=== PATIENT | male | born 1965 | race Two or more races ===

== ENCOUNTER 2018-01-13 00:37 | Inpatient (IN) | payer OTHER ==
[~2018-01-13] VITALS: Ht 177.8 cm; Wt 90.9 kg
[2018-01-13] VITALS (47 sets, daily range): BP systolic 74–103; BP diastolic 56–70
[2018-01-13] MEDS ORDERED: MIDAZOLAM DRIP 50 mg/50mL 50 ML IV ONE (00:57)
[2018-01-13] MEDS: MIDAZOLAM DRIP 50 mg/50mL 50 ML IV SCH ×3 (01:00→17:23)
[2018-01-13 01:03] LABS: Basophils # (auto) 0 uL; Basophils % (auto) 0.3 % (0.0-2.0); Eosinophils # (auto) 0 uL; Hemoglobin 17.2 g/dL (13.5-17.5)
[2018-01-13 01:04] LABS: Eosinophils % (auto) 0.3 % (0.0-7.0); Hematocrit 52.9 % (41.0-53.0); Lymphocytes # (auto) 4.2 uL; Lymphocytes % (auto) 32.9 % (10.0-50.0); Mean Corpuscular Hemoglobin 32.5 pg (28.0-32.0); Mean Corpuscular Hgb Conc. 32.5 g/dL (32.0-36.0); Mean Corpuscular Volume 100.2 fL (80.0-100.0); Monocytes # (auto) 1.3 uL; Monocytes % (auto) 10.4 % (0.0-12.0); Neutrophils # (auto) 7.1 uL; Neutrophils % (auto) 56.1 % (37.0-80.0); Nucleated Red Blood Cells % 0.2 %; Platelet Count (auto) 144 10^3/uL (140-450); Red Blood Cells 5.28 10^6/uL (4.5-5.90); Red Cell Distribution Width 15.7 % (11.8-14.3); White Blood Cell 12.7 10^3/uL (4.4-10.8)
[2018-01-13 01:21] LABS: Albumin 3.9 g/dL (3.4-5.0); BUN/Creatinine Ratio 13.2; Calcium 8.7 mg/dL (8.5-10.1); INR 1.92 (0.9-1.15); Partial Thromboplastin Time 29.4 sec (22.64-33.71); Potassium 3.8 mmol/L (3.5-5.1); Prothrombin Time 21.1 sec (9.37-12.3)
[2018-01-13 01:27] LABS: Bilirubin, Total 0.7 mg/dL (0.2-1.0); Total Protein 7.9 g/dL (6.4-8.2)
[2018-01-13] MEDS ORDERED: NOREPINEPHRINE 8 MG/250ML KIT 250 ML IV ONE (01:42)
[2018-01-13] MEDS: NOREPINEPHRINE 8 MG/250ML KIT 250 ML IV SCH (01:50)
[2018-01-13] MEDS ORDERED: SUCCINYLCHOLINE CHLORIDE 20 MG/ML 10ML VIAL IV ONE (03:00)
[2018-01-13] MEDS ORDERED: ETOMIDATE (2MG/ML) 20ML VIAL IV ONE (03:00)
[2018-01-13] MEDS ORDERED: IOHEXOL 350 MG/ML 100ML IJ ONE ×2 (03:24→21:44)
[2018-01-13 03:50] LABS: Urine Bacteria NONE SEEN /hpf (None Seen); Urine Blood 2+ /uL (Negative); Urine Hyaline Cast FEW /lpf (0 - 2); Urine Mucus FEW (None Seen); Urine Specific Gravity 1.022 (1.001-1.035); Urine Sperm PRESENT /hpf (None Seen); Urine WBC 2 /hpf (0 - 3)
[2018-01-13] MEDS ORDERED: LISI-275 PO (04:18)
[2018-01-13] MEDS ORDERED: CARV6.2551 PO (04:18)
[2018-01-13] MEDS ORDERED: FURO20TA3 PO (04:18)
[2018-01-13] MEDS ORDERED: WARF5TAB71 PO (04:18)
[2018-01-13] MEDS ORDERED: ASPI81TA27 PO (04:18)
[2018-01-13 07:14] LABS: Acetaminophen < 2.0 ug/mL (10-30); Salicylate < 1.7 mg/dL (2.8-20.0)
[2018-01-13] MEDS ORDERED: TRAZ50TA2 PO (09:39)
[2018-01-13] MEDS: PANTOPRAZOLE 40 MG/10 ML VIAL IV SCH (10:00)
[2018-01-13] MEDS ORDERED: ENOXAPARIN SOD 40 MG/0.4 ML SYRINGE SC SCH (10:00)
[2018-01-13] MEDS: SODIUM CHLORIDE 0.9% 1,000 ML IV SCH ×2 (13:30→17:23)
[2018-01-13] MEDS ORDERED: ENOXAPARIN SOD 100 MG/1 ML SYRINGE SC ONE (13:45)
[2018-01-13] MEDS ORDERED: PANTOPRAZOLE 40 MG/10 ML VIAL IV ONE (13:45)
[2018-01-13] MEDS: PIPERACILLIN-TAZO 4.5GM 50 ML IV SCH ×2 (14:19→22:23)
[2018-01-13 15:01] LABS: Alcohol, Urine < 3.0 mg/dL (0-5); Amphetamine Screen, Urine NEGATIVE (NEGATIVE); Barbiturate Scree,Urine NEGATIVE (NEGATIVE); Benzodiazephine Screen, Urine POSITIVE (NEGATIVE); Cannabinoid Screen, Urine NEGATIVE (NEGATIVE); Cocaine Screen, Urine NEGATIVE (NEGATIVE); Opiate Scree,Urine NEGATIVE (NEGATIVE); Phencyclidine Screen, Urine NEGATIVE (NEGATIVE)
[2018-01-13] MEDS: PROPOFOL 100 ML IV SCH (19:23)
[2018-01-14] VITALS (80 sets, daily range): BP systolic 84–119; BP diastolic 55–72
[2018-01-14] MEDS: NOREPINEPHRINE 8 MG/250ML KIT 250 ML IV SCH (03:00)
[2018-01-14 06:01] LABS: Basophils # (auto) 0 uL; Basophils % (auto) 0.3 % (0.0-2.0); Eosinophils # (auto) 0 uL; Eosinophils % (auto) 0.4 % (0.0-7.0); Hematocrit 43.8 % (41.0-53.0); Lymphocytes # (auto) 1.1 uL; Lymphocytes % (auto) 16.6 % (10.0-50.0); Mean Corpuscular Hemoglobin 32.7 pg (28.0-32.0); Mean Corpuscular Hgb Conc. 34.3 g/dL (32.0-36.0); Mean Corpuscular Volume 95.5 fL (80.0-100.0); Monocytes # (auto) 0.7 uL; Monocytes % (auto) 9.7 % (0.0-12.0); Platelet Count (auto) 112 10^3/uL (140-450); Red Blood Cells 4.58 10^6/uL (4.5-5.90); Red Cell Distribution Width 15.2 % (11.8-14.3); White Blood Cell 6.8 10^3/uL (4.4-10.8)
[2018-01-14] MEDS: PIPERACILLIN-TAZO 4.5GM 50 ML IV SCH ×3 (06:07→23:42)
[2018-01-14 06:21] LABS: BUN/Creatinine Ratio 17.1; Calcium 7.4 mg/dL (8.5-10.1); Magnesium 2.9 mg/dL (1.6-2.6); Potassium 3.8 mmol/L (3.5-5.1)
[2018-01-14 06:24] LABS: Bilirubin, Total 0.7 mg/dL (0.2-1.0); Total Protein 6.3 g/dL (6.4-8.2)
[2018-01-14] MEDS: PROPOFOL 100 ML IV SCH ×2 (08:36→17:01)
[2018-01-14] MEDS: MIDAZOLAM DRIP 50 mg/50mL 50 ML IV SCH ×2 (08:37→20:40)
[2018-01-14] MEDS: PANTOPRAZOLE 40 MG/10 ML VIAL IV SCH (09:51)
[2018-01-14] MEDS: SODIUM CHLORIDE 0.9% 1,000 ML IV SCH (09:51)
[2018-01-14] MEDS: ENOXAPARIN SOD 100 MG/1 ML SYRINGE SC SCH ×2 (09:51→22:31)
[2018-01-14] MEDS: ALBUTEROL SULF 2.5 MG/0.5ML(0.5%) NEB SOLN NEB SCH ×2 (12:07→18:38)
[2018-01-14] MEDS ORDERED: ASPirin 81 mg TAB PO ONE (17:15)
[2018-01-14] MEDS: ATORVASTATIN 20 MG TAB PO SCH (22:30)
[2018-01-14] MEDS ORDERED: PIPERACILLIN-TAZO 4.5GM 50 ML IV ONE (23:39)
[2018-01-15] VITALS (72 sets, daily range): BP systolic 94–139; BP diastolic 47–86
[2018-01-15] MEDS: ALBUTEROL SULF 2.5 MG/0.5ML(0.5%) NEB SOLN NEB SCH ×6 (00:32→22:22)
[2018-01-15] MEDS: MIDAZOLAM DRIP 50 mg/50mL 50 ML IV SCH ×2 (01:32→05:59)
[2018-01-15] MEDS: NOREPINEPHRINE 8 MG/250ML KIT 250 ML IV SCH (03:00)
[2018-01-15 04:34] LABS: Basophils # (auto) 0 uL; Basophils % (auto) 0.2 % (0.0-2.0); Eosinophils # (auto) 0 uL; Eosinophils % (auto) 0.8 % (0.0-7.0); Hematocrit 41.1 % (41.0-53.0); Hemoglobin 13.9 g/dL (13.5-17.5); Lymphocytes # (auto) 1.4 uL; Lymphocytes % (auto) 22.9 % (10.0-50.0); Mean Corpuscular Hemoglobin 32.5 pg (28.0-32.0); Mean Corpuscular Hgb Conc. 33.9 g/dL (32.0-36.0); Monocytes # (auto) 0.7 uL; Monocytes % (auto) 11.1 % (0.0-12.0); Nucleated Red Blood Cells % 0.1 %; Platelet Count (auto) 101 10^3/uL (140-450); Red Blood Cells 4.28 10^6/uL (4.5-5.90); Red Cell Distribution Width 15.1 % (11.8-14.3); White Blood Cell 6.1 10^3/uL (4.4-10.8)
[2018-01-15 04:54] LABS: BUN/Creatinine Ratio 19.6; Calcium 7.6 mg/dL (8.5-10.1); Potassium 3.7 mmol/L (3.5-5.1)
[2018-01-15] MEDS: SODIUM CHLORIDE 0.9% 1,000 ML IV SCH ×3 (05:30→15:30)
[2018-01-15] MEDS: PIPERACILLIN-TAZO 4.5GM 50 ML IV SCH ×3 (06:50→21:55)
[2018-01-15] MEDS: PANTOPRAZOLE 40 MG/10 ML VIAL IV SCH (09:55)
[2018-01-15] MEDS: ENOXAPARIN SOD 100 MG/1 ML SYRINGE SC SCH ×2 (09:55→21:55)
[2018-01-15] MEDS: ACETYLCYSTEINE 10 %(100MG/ML) SOL 4ML NEB SCH ×4 (11:07→22:21)
[2018-01-15] MEDS: PROPOFOL 100 ML IV SCH (20:00)
[2018-01-15] MEDS: ATORVASTATIN 20 MG TAB PO SCH (21:55)
[2018-01-15] MEDS: ASPirin 81 mg TAB PO SCH (22:14)
[2018-01-16] VITALS (27 sets, daily range): BP systolic 85–134; BP diastolic 51–103
[2018-01-16] MEDS: SODIUM CHLORIDE 0.9% 1,000 ML IV SCH ×2 (01:30→04:44)
[2018-01-16] MEDS: ALBUTEROL SULF 2.5 MG/0.5ML(0.5%) NEB SOLN NEB SCH ×6 (02:33→22:00)
[2018-01-16] MEDS: ACETYLCYSTEINE 10 %(100MG/ML) SOL 4ML NEB SCH ×6 (02:33→22:00)
[2018-01-16] MEDS: NOREPINEPHRINE 8 MG/250ML KIT 250 ML IV SCH (03:00)
[2018-01-16 05:28] LABS: BUN/Creatinine Ratio 15.6; Calcium 7.5 mg/dL (8.5-10.1); Potassium 3.5 mmol/L (3.5-5.1)
[2018-01-16 05:30] LABS: Basophils # (auto) 0 uL; Basophils % (auto) 0.3 % (0.0-2.0); Eosinophils # (auto) 0.1 uL; Eosinophils % (auto) 1.5 % (0.0-7.0); Hemoglobin 13.2 g/dL (13.5-17.5); Lymphocytes % (auto) 20.6 % (10.0-50.0); Mean Corpuscular Hemoglobin 32.3 pg (28.0-32.0); Mean Corpuscular Hgb Conc. 33.8 g/dL (32.0-36.0); Mean Corpuscular Volume 95.7 fL (80.0-100.0); Monocytes # (auto) 0.6 uL; Monocytes % (auto) 11.5 % (0.0-12.0); Neutrophils # (auto) 3.2 uL; Neutrophils % (auto) 66.1 % (37.0-80.0); Nucleated Red Blood Cells % 0.1 %; Platelet Count (auto) 99 10^3/uL (140-450); Red Blood Cells 4.08 10^6/uL (4.5-5.90); White Blood Cell 4.9 10^3/uL (4.4-10.8)
[2018-01-16] MEDS: PIPERACILLIN-TAZO 4.5GM 50 ML IV SCH ×3 (05:52→22:18)
[2018-01-16] MEDS ORDERED: FUROSEMIDE 40 MG/4 ML VIAL IV ONE (09:30)
[2018-01-16] MEDS ORDERED: MORPHINE SULFATE 4 MG/ML SYR/VIAL ONE (09:35)
[2018-01-16] MEDS: MORPHINE SULFATE 4 MG/ML SYR/VIAL IV PRN ×3 (09:40→23:23)
[2018-01-16] MEDS: ENOXAPARIN SOD 100 MG/1 ML SYRINGE SC SCH (10:27)
[2018-01-16] MEDS ORDERED: KETOROLAC TROMETH 30 MG/ML 1ML VIAL IV ONE ×2 (12:30→12:45)
[2018-01-16] MEDS ORDERED: CARVEDILOL 3.125 MG TAB PO ONE (12:45)
[2018-01-16] MEDS ORDERED: LISINOPRIL 5 MG TAB PO ONE (12:45)
[2018-01-16 14:07] LABS: INR 2.73 (0.9-1.15); Partial Thromboplastin Time 29.2 sec (22.64-33.71); Prothrombin Time 30.1 sec (9.37-12.3)
[2018-01-16] MEDS: PANTOPRAZOLE 40 MG TAB PO SCH (14:24)
[2018-01-16] MEDS: ASPirin 81 mg TAB PO SCH (14:25)
[2018-01-16] MEDS: CARVEDILOL 3.125 MG TAB PO SCH (22:00)
[2018-01-16] MEDS: ATORVASTATIN 20 MG TAB PO SCH (22:18)
[2018-01-16] MEDS: NAPROXEN 500 MG TAB PO SCH (22:18)
[2018-01-17] VITALS (32 sets, daily range): BP systolic 88–129; BP diastolic 55–98
[2018-01-17] MEDS: MORPHINE SULFATE 4 MG/ML SYR/VIAL IV PRN ×6 (01:58→21:57)
[2018-01-17] MEDS: ALBUTEROL SULF 2.5 MG/0.5ML(0.5%) NEB SOLN NEB SCH ×6 (02:18→22:51)
[2018-01-17] MEDS: ACETYLCYSTEINE 10 %(100MG/ML) SOL 4ML NEB SCH ×6 (02:18→22:51)
[2018-01-17 05:13] LABS: INR 3.01 (0.9-1.15); Partial Thromboplastin Time 29.4 sec (22.64-33.71); Prothrombin Time 33.2 sec (9.37-12.3)
[2018-01-17] MEDS: PIPERACILLIN-TAZO 4.5GM 50 ML IV SCH ×3 (05:47→22:15)
[2018-01-17 06:16] LABS: Albumin 3.1 g/dL (3.4-5.0); BUN/Creatinine Ratio 15.7; Bilirubin, Total 1.1 mg/dL (0.2-1.0); Calcium 8.9 mg/dL (8.5-10.1); Magnesium 2.7 mg/dL (1.6-2.6); Potassium 4.5 mmol/L (3.5-5.1)
[2018-01-17] MEDS: NAPROXEN 500 MG TAB PO SCH (09:41)
[2018-01-17] MEDS: ASPirin 81 mg TAB PO SCH (09:42)
[2018-01-17] MEDS: CARVEDILOL 3.125 MG TAB PO SCH ×2 (09:42→22:41)
[2018-01-17] MEDS: FUROSEMIDE 20 MG TAB PO SCH (09:42)
[2018-01-17] MEDS: PANTOPRAZOLE 40 MG TAB PO SCH (09:43)
[2018-01-17] MEDS: LISINOPRIL 5 MG TAB PO SCH (09:43)
[2018-01-17] MEDS ORDERED: D5W/SOD CHL 0.45% 1,000 ML IV SCH (16:45)
[2018-01-17] MEDS: KETOROLAC TROMETH 30 MG/ML 1ML VIAL IV PRN (16:53)
[2018-01-17] MEDS: ATORVASTATIN 20 MG TAB PO SCH (22:15)
[2018-01-18] VITALS (70 sets, daily range): BP systolic 84–140; BP diastolic 45–86
[2018-01-18] MEDS: MORPHINE SULFATE 4 MG/ML SYR/VIAL IV PRN ×8 (00:05→22:55)
[2018-01-18] MEDS: KETOROLAC TROMETH 30 MG/ML 1ML VIAL IV PRN (01:05)
[2018-01-18] MEDS: ALBUTEROL SULF 2.5 MG/0.5ML(0.5%) NEB SOLN NEB SCH ×6 (02:55→22:13)
[2018-01-18] MEDS: ACETYLCYSTEINE 10 %(100MG/ML) SOL 4ML NEB SCH ×6 (02:55→22:13)
[2018-01-18 04:03] LABS: Basophils # (auto) 0 uL; Basophils % (auto) 0.2 % (0.0-2.0); Eosinophils # (auto) 0 uL; Hematocrit 43.5 % (41.0-53.0); Hemoglobin 14.6 g/dL (13.5-17.5); Lymphocytes # (auto) 0.7 uL; Mean Corpuscular Hemoglobin 32.1 pg (28.0-32.0); Mean Corpuscular Hgb Conc. 33.6 g/dL (32.0-36.0); Mean Corpuscular Volume 95.7 fL (80.0-100.0); Monocytes # (auto) 0.7 uL; Monocytes % (auto) 6.1 % (0.0-12.0); Neutrophils # (auto) 9.9 uL; Neutrophils % (auto) 87.7 % (37.0-80.0); Nucleated Red Blood Cells % 0.1 %; Platelet Count (auto) 122 10^3/uL (140-450); Red Blood Cells 4.54 10^6/uL (4.5-5.90); Red Cell Distribution Width 15.8 % (11.8-14.3); White Blood Cell 11.2 10^3/uL (4.4-10.8)
[2018-01-18 04:23] LABS: BUN/Creatinine Ratio 20.3; Calcium 8.7 mg/dL (8.5-10.1); Potassium 4.1 mmol/L (3.5-5.1)
[2018-01-18 04:29] LABS: INR 3.99 (0.9-1.15); Prothrombin Time 44.1 sec (9.37-12.3)
[2018-01-18] MEDS: PIPERACILLIN-TAZO 4.5GM 50 ML IV SCH ×3 (06:10→22:00)
[2018-01-18] MEDS: ASPirin 81 mg TAB PO SCH ×2 (09:52→10:00)
[2018-01-18] MEDS: CARVEDILOL 3.125 MG TAB PO SCH ×3 (09:52→22:00)
[2018-01-18] MEDS: FUROSEMIDE 20 MG TAB PO SCH ×2 (09:53→10:00)
[2018-01-18] MEDS: PANTOPRAZOLE 40 MG TAB PO SCH ×2 (09:53→10:00)
[2018-01-18] MEDS: LISINOPRIL 5 MG TAB PO SCH (09:53)
[2018-01-18] MEDS ORDERED: SODIUM CHLORIDE 0.9% 500 ML IV ONE (11:30)
[2018-01-18] MEDS: D5W/SOD CHL 0.45% 1,000 ML IV SCH ×2 (11:30→19:55)
[2018-01-18] MEDS ORDERED: LORazepam 2MG/ML-1ML VIAL ONE (11:36)
[2018-01-18] MEDS ORDERED: LORazepam 2MG/ML-1ML VIAL IM ONE (11:45)
[2018-01-18] MEDS ORDERED: LORazepam 2MG/ML-1ML VIAL IV ONE (11:45)
[2018-01-18] MEDS: DEXAMETHASONE SOD PHOS 4 MG/1ML SDV INJ IV SCH ×2 (12:21→18:00)
[2018-01-18] MEDS: LORazepam 2MG/ML-1ML VIAL IV PRN ×2 (14:32→20:05)
[2018-01-18] MEDS: SERTRALINE HCL 50 MG TAB PO SCH (14:45)
[2018-01-18] MEDS: ATORVASTATIN 20 MG TAB PO SCH (22:00)
[2018-01-19] VITALS (39 sets, daily range): BP systolic 95–130; BP diastolic 55–83
[2018-01-19] MEDS: DEXAMETHASONE SOD PHOS 4 MG/1ML SDV INJ IV SCH ×3 (00:15→12:03)
[2018-01-19] MEDS: ACETYLCYSTEINE 10 %(100MG/ML) SOL 4ML NEB SCH ×5 (00:33→14:08)
[2018-01-19] MEDS: ALBUTEROL SULF 2.5 MG/0.5ML(0.5%) NEB SOLN NEB SCH ×5 (00:33→14:08)
[2018-01-19] MEDS: MORPHINE SULFATE 4 MG/ML SYR/VIAL IV PRN ×4 (03:05→14:46)
[2018-01-19] MEDS: D5W/SOD CHL 0.45% 1,000 ML IV SCH ×2 (03:30→11:30)
[2018-01-19] MEDS: LORazepam 2MG/ML-1ML VIAL IV PRN ×2 (03:35→12:03)
[2018-01-19 03:46] LABS: Basophils # (auto) 0 uL; Basophils % (auto) 0.1 % (0.0-2.0); Eosinophils # (auto) 0 uL; Hematocrit 37.8 % (41.0-53.0); Hemoglobin 13.1 g/dL (13.5-17.5); Lymphocytes # (auto) 0.3 uL; Lymphocytes % (auto) 3.5 % (10.0-50.0); Mean Corpuscular Hemoglobin 32.9 pg (28.0-32.0); Mean Corpuscular Hgb Conc. 34.7 g/dL (32.0-36.0); Mean Corpuscular Volume 94.8 fL (80.0-100.0); Monocytes # (auto) 0.4 uL; Monocytes % (auto) 4.1 % (0.0-12.0); Neutrophils # (auto) 8.7 uL; Neutrophils % (auto) 92.3 % (37.0-80.0); Nucleated Red Blood Cells % 0.1 %; Platelet Count (auto) 108 10^3/uL (140-450); Red Blood Cells 3.99 10^6/uL (4.5-5.90); Red Cell Distribution Width 15.5 % (11.8-14.3); White Blood Cell 9.5 10^3/uL (4.4-10.8)
[2018-01-19 04:05] LABS: Albumin 2.9 g/dL (3.4-5.0); BUN/Creatinine Ratio 31.3; Bilirubin, Total 0.6 mg/dL (0.2-1.0); Potassium 3.4 mmol/L (3.5-5.1); Total Protein 6.4 g/dL (6.4-8.2)
[2018-01-19] MEDS: PIPERACILLIN-TAZO 4.5GM 50 ML IV SCH ×2 (06:18→14:00)
[2018-01-19] MEDS: SERTRALINE HCL 50 MG TAB PO SCH (09:28)
[2018-01-19] MEDS: PANTOPRAZOLE 40 MG TAB PO SCH (09:28)
[2018-01-19] MEDS: CARVEDILOL 3.125 MG TAB PO SCH (10:00)
== END 2018-01-19 15:07 | disposition short-term general hospital (02) | DRG 208 ==
LOC: ER 00:44 → TELE 00:45 → ICU WEST 01-14 12:21
PROVIDERS: ADMIT Nurse Practitioner Family; ATTEND Internal Medicine Geriatric Medicine
PROC: 5A1945Z Respiratory Ventilation, 24-96 Consecutive Hours (ICD-10-PCS; principal; 2018-01-13)
PROC: 0BH17EZ Insertion of Endotracheal Airway into Trachea, Via Natural or Artificial Opening (ICD-10-PCS; 2018-01-13)
PROC: 5A09457 Assistance with Respiratory Ventilation, 24-96 Consecutive Hours, Continuous Positive Airway Pressure (ICD-10-PCS; 2018-01-16)
DX: J96.01 Acute respiratory failure with hypoxia (principal); R56.9 Unspecified convulsions; N17.9 Acute kidney failure, unspecified; I95.9 Hypotension, unspecified; E86.0 Dehydration; E87.2 Acidosis; E86.1 Hypovolemia; N18.3 Chronic kidney disease, stage 3 (moderate); G95.20 Unspecified cord compression; M48.54XA Collapsed vertebra, not elsewhere classified, thoracic region, initial encounter for fracture; M48.56XA Collapsed vertebra, not elsewhere classified, lumbar region, initial encounter for fracture; D72.829 Elevated white blood cell count, unspecified; I08.0 Rheumatic disorders of both mitral and aortic valves; F41.1 Generalized anxiety disorder; M48.061 Spinal stenosis, lumbar region without neurogenic claudication; R73.9 Hyperglycemia, unspecified; I12.9 Hypertensive chronic kidney disease with stage 1 through stage 4 chronic kidney disease, or unspecified chronic kidney disease; M54.5 Low back pain; I25.10 Atherosclerotic heart disease of native coronary artery without angina pectoris; M85.80 Other specified disorders of bone density and structure, unspecified site; I48.91 Unspecified atrial fibrillation; Z79.01 Long term (current) use of anticoagulants; Z79.82 Long term (current) use of aspirin; Z79.899 Other long term (current) drug therapy; Z95.0 Presence of cardiac pacemaker; Z83.3 Family history of diabetes mellitus; Z95.1 Presence of aortocoronary bypass graft
CPT/HCPCS: 31500; 36415; 36600; 51702; 71045; 71275; 72131; 74018; 76775; 80048; 80053; 80307; 80320; 80329; 81001; 82565; 82805; 83036; 83735; 83880; 84484; 84520; 85025; 85379; 85610; 85730; 87040; 87070; 87081; 87086; 87205; 87804; 93005; 93306; 93970; 94002; 94003; 94640; 94660; 95819; 96374; A4565; C9113; J1100; J1885; J2250; J2543; J2704

== ENCOUNTER 2022-12-02 13:52 | Inpatient (IN) | payer OTHER ==
[~2022-12-02] VITALS: Ht 165.1 cm; Wt 77.8 kg
[~2022-12-02 13:52] MED LIST: ASPI-543 PO; CARV6.2551 PO; FURO20TA3 PO; LISI-275 PO; TRAZ50TA2 PO; WARF5TAB71 PO
[2022-12-02 14:58] LABS: Hematocrit 28.3 % (41.0-53.0); Hemoglobin 9.1 g/dL (13.5-17.5); Mean Corpuscular Hemoglobin 30.3 pg (28.0-32.0); Mean Corpuscular Hgb Conc. 32.2 g/dL (32.0-36.0); Mean Corpuscular Volume 94.2 fL (80.0-100.0); Red Blood Cells 3.01 10^6/uL (4.5-5.90); Red Cell Distribution Width 19.2 % (11.8-14.3); White Blood Cell 7.4 10^3/uL (4.4-10.8)
[2022-12-02 15:00] LABS: Basophils % (manual) 0 (0.0-2.0); Blast Cells 0; Eosinophils % (manual) 0 (0-7); Metamyelocytes % 0; Myelocytes % 0; Promyelocytes % 0; Reactive Lymphocytes 0
[2022-12-02 15:13] LABS: Albumin 1.9 g/dL (3.4-5.0); BUN/Creatinine Ratio 21.1; Calcium 8.3 mg/dL (8.5-10.1); Potassium 4.2 mmol/L (3.5-5.1)
[2022-12-02 15:16] LABS: Bilirubin, Total 1.2 mg/dL (0.2-1.0); Total Protein 8.8 g/dL (6.4-8.2)
[2022-12-02 15:30] LABS: Band Neutrophils % (manual) 16; Lymphocytes % (manual) 8 (10.0-50.0); Monocytes % (manual) 5 (0-12)
[2022-12-02 16:57] LABS: Urine Bacteria FEW /hpf (None Seen); Urine Blood 3+ /uL (Negative); Urine Budding Yeast OCCASIONAL /hpf (None Seen); Urine Hyaline Cast FEW /lpf (0 - 2); Urine Mucus FEW (None Seen); Urine Specific Gravity 1.015 (1.001-1.035); Urine WBC 130 /hpf (0 - 3); Urine WBC Clumps PRESENT /hpf (None Seen)
[2022-12-02 18:45] LABS: INR 3.46 (0.9-1.15)
[2022-12-02] MEDS ORDERED: CEFTRIAXONE SODIUM 2 GM in D5W 5% 50 ML IV ONE (19:45)
[2022-12-02] MEDS ORDERED: cefTRIAXone 1GM/50ML D5W 100 ML IV ONE (20:13)
[2022-12-02] MEDS ORDERED: SODIUM CHLORIDE 0.9% 500 ML IV ONE (22:15)
[2022-12-02] MEDS ORDERED: ASPirin 81 mg TAB PO ONE (23:45)
[2022-12-02] MEDS ORDERED: ACETAMINOPHEN 500 MG TAB PO ONE (23:45)
[2022-12-03] MEDS ORDERED: cefTRIAXone 1GM/50ML D5W 50 ML IV ONE (11:30)
[2022-12-03 12:06] LABS: Basophils # (auto) 0 10 ^3/uL (0-0.2); Eosinophils # (auto) 0 10 ^3/uL (0-0.8); Eosinophils % (auto) 0.1 % (0.0-7.0); Monocytes # (auto) 0.5 10 ^3/uL (0-1.3); Nucleated Red Blood Cells % 0.1 %
[2022-12-03 12:07] LABS: Basophils % (auto) 0.2 % (0.0-2.0); Hematocrit 25.3 % (41.0-53.0); Hemoglobin 8.3 g/dL (13.5-17.5); Mean Corpuscular Hemoglobin 31.2 pg (28.0-32.0); Mean Corpuscular Hgb Conc. 32.7 g/dL (32.0-36.0); Mean Corpuscular Volume 95.4 fL (80.0-100.0); Monocytes % (auto) 4.5 % (0.0-12.0); Neutrophils # (auto) 8.9 10 ^3/uL (1.6-8.6); Neutrophils % (auto) 85.2 % (37.0-80.0); Red Blood Cells 2.65 10^6/uL (4.5-5.90); Red Cell Distribution Width 19.8 % (11.8-14.3); White Blood Cell 10.4 10^3/uL (4.4-10.8)
[2022-12-03 13:18] LABS: Potassium 4.7 mmol/L (3.5-5.1)
[2022-12-03 13:19] LABS: BUN/Creatinine Ratio 22.5
[2022-12-03 13:20] LABS: Albumin 1.8 g/dL (3.4-5.0)
[2022-12-03 13:21] LABS: Calcium 7.9 mg/dL (8.5-10.1); Total Protein 8.9 g/dL (6.4-8.2)
[2022-12-03] MEDS ORDERED: VANCOMYCIN 1GM/250ML 250 ML IV ONE (15:15)
[2022-12-03 16:24] LABS: Basophils # (auto) 0 10 ^3/uL (0-0.2); Basophils % (auto) 0.2 % (0.0-2.0); Eosinophils # (auto) 0 10 ^3/uL (0-0.8); Eosinophils % (auto) 0.1 % (0.0-7.0); Hematocrit 25.7 % (41.0-53.0); Hemoglobin 8.5 g/dL (13.5-17.5); Lymphocytes # (auto) 1.1 10 ^3/uL (0.4-5.4); Mean Corpuscular Hemoglobin 30.7 pg (28.0-32.0); Mean Corpuscular Hgb Conc. 32.9 g/dL (32.0-36.0); Mean Corpuscular Volume 93.2 fL (80.0-100.0); Monocytes # (auto) 0.5 10 ^3/uL (0-1.3); Monocytes % (auto) 5.3 % (0.0-12.0); Neutrophils % (auto) 81.4 % (37.0-80.0); Nucleated Red Blood Cells % 0.2 %; Red Blood Cells 2.76 10^6/uL (4.5-5.90); Red Cell Distribution Width 19.7 % (11.8-14.3); White Blood Cell 8.6 10^3/uL (4.4-10.8)
[2022-12-03 16:41] LABS: Albumin 1.9 g/dL (3.4-5.0); BUN/Creatinine Ratio 22.9; Calcium 8.2 mg/dL (8.5-10.1); Potassium 4.9 mmol/L (3.5-5.1)
[2022-12-03 16:44] LABS: Bilirubin, Total 0.9 mg/dL (0.2-1.0); Total Protein 8.7 g/dL (6.4-8.2)
[2022-12-04] MEDS ORDERED: CLINDAMYCIN 600MG IV 50 ML IV ONE (02:45)
[2022-12-05 06:50] LABS: Potassium 4.4 mmol/L (3.5-5.1)
[2022-12-05 07:04] LABS: Albumin 1.7 g/dL (3.4-5.0); BUN/Creatinine Ratio 24.7; Bilirubin, Total 0.8 mg/dL (0.2-1.0); Calcium 8.3 mg/dL (8.5-10.1); Total Protein 9.2 g/dL (6.4-8.2)
[2022-12-05 07:44] LABS: Eosinophils # (auto) 0.1 10 ^3/uL (0-0.8); Eosinophils % (auto) 1.2 % (0.0-7.0); Lymphocytes # (auto) 1.6 10 ^3/uL (0.4-5.4); Mean Corpuscular Volume 95.8 fL (80.0-100.0); Monocytes # (auto) 0.7 10 ^3/uL (0-1.3)
[2022-12-05 07:46] LABS: Basophils # (auto) 0.1 10 ^3/uL (0-0.2); Basophils % (auto) 0.9 % (0.0-2.0); Hematocrit 26.2 % (41.0-53.0); Hemoglobin 8.2 g/dL (13.5-17.5); Lymphocytes % (auto) 19.3 % (10.0-50.0); Mean Corpuscular Hemoglobin 30.2 pg (28.0-32.0); Mean Corpuscular Hgb Conc. 31.5 g/dL (32.0-36.0); Monocytes % (auto) 8.4 % (0.0-12.0); Neutrophils # (auto) 5.8 10 ^3/uL (1.6-8.6); Neutrophils % (auto) 70.2 % (37.0-80.0); Nucleated Red Blood Cells % 0.7 %; Red Blood Cells 2.73 10^6/uL (4.5-5.90); Red Cell Distribution Width 21.3 % (11.8-14.3); White Blood Cell 8.3 10^3/uL (4.4-10.8)
[2022-12-05] MEDS ORDERED: CLINDAMYCIN 600MG IV 50 ML IV ONE (11:45)
[2022-12-05] MEDS ORDERED: VANCOMYCIN PER PHARMACY 0 MG IV SCH (19:45)
[2022-12-05] MEDS ORDERED: ONDANSETRON HCL 4 MG/2 ML VIAL IV PRN (19:45)
[2022-12-05] MEDS ORDERED: ACETAMINOPHEN 325 MG TAB PO PRN (19:45)
[2022-12-05] MEDS ORDERED: HEPARIN DRIP/D5W 100UNITS/ML 250 ML IV SCH (20:15)
[2022-12-05] MEDS ORDERED: VANCOMYCIN 1GM/250ML 250 ML IV ONE (21:00)
[2022-12-05 21:32] LABS: Basophils # (auto) 0 10 ^3/uL (0-0.2); Basophils % (auto) 0.4 % (0.0-2.0); Eosinophils # (auto) 0 10 ^3/uL (0-0.8); Eosinophils % (auto) 0.1 % (0.0-7.0); Hematocrit 28.9 % (41.0-53.0); Hemoglobin 9.1 g/dL (13.5-17.5); Lymphocytes # (auto) 1.8 10 ^3/uL (0.4-5.4); Lymphocytes % (auto) 26.9 % (10.0-50.0); Mean Corpuscular Hemoglobin 29.5 pg (28.0-32.0); Mean Corpuscular Hgb Conc. 31.3 g/dL (32.0-36.0); Mean Corpuscular Volume 94.1 fL (80.0-100.0); Monocytes # (auto) 0.4 10 ^3/uL (0-1.3); Monocytes % (auto) 6.6 % (0.0-12.0); Neutrophils # (auto) 4.5 10 ^3/uL (1.6-8.6); Red Blood Cells 3.07 10^6/uL (4.5-5.90); Red Cell Distribution Width 20.7 % (11.8-14.3); White Blood Cell 6.8 10^3/uL (4.4-10.8)
[2022-12-05 21:48] LABS: Partial Thromboplastin Time 32.9 sec (24.6-33.4)
[2022-12-05 21:59] LABS: INR 6.17 (0.9-1.15)
[2022-12-05] MEDS: CEFEPIME 1GM/ 50ML 50 ML IV SCH (22:27)
[2022-12-06 03:10] LABS: Partial Thromboplastin Time 60.9 sec (24.6-33.4)
[2022-12-06 03:15] LABS: INR 6.87 (0.9-1.15)
[2022-12-06 06:09] LABS: Hematocrit 23.6 % (41.0-53.0); Red Blood Cells 2.53 10^6/uL (4.5-5.90); White Blood Cell 6.4 10^3/uL (4.4-10.8)
[2022-12-06 06:12] LABS: Hemoglobin 7.5 g/dL (13.5-17.5); Mean Corpuscular Hemoglobin 29.8 pg (28.0-32.0); Mean Corpuscular Hgb Conc. 31.9 g/dL (32.0-36.0); Mean Corpuscular Volume 93.2 fL (80.0-100.0)
[2022-12-06 06:24] LABS: Calcium 7.9 mg/dL (8.5-10.1); Potassium 3.6 mmol/L (3.5-5.1)
[2022-12-06 06:27] LABS: BUN/Creatinine Ratio 20.9; Magnesium 1.8 mg/dL (1.6-2.6)
[2022-12-06 06:45] LABS: Partial Thromboplastin Time 61.6 sec (24.6-33.4)
[2022-12-06 06:46] LABS: Red Cell Distribution Width 20.1 % (11.8-14.3)
[2022-12-06 06:47] LABS: Basophils % (manual) 0 (0.0-2.0); Blast Cells 0; Metamyelocytes % 0; Myelocytes % 0; Promyelocytes % 0; Reactive Lymphocytes 0
[2022-12-06 07:10] LABS: INR 6.6 (0.9-1.15)
[2022-12-06 07:39] LABS: Band Neutrophils % (manual) 9; Eosinophils % (manual) 2 (0-7); Lymphocytes % (manual) 24 (10.0-50.0); Monocytes % (manual) 10 (0-12)
[2022-12-06] MEDS ORDERED: phytonadione 2.5 MG in SODIUM CHL 0.9% 50 ML IV ONE (08:00)
[2022-12-06] MEDS ORDERED: ALBUMIN 25% 100 ML IV ONE (08:45)
[2022-12-06] MEDS ORDERED: SODIUM CHLORIDE 0.9% 1,000 ML IV ONE (08:45)
[2022-12-06] MEDS ORDERED: SODIUM CHLORIDE 0.9% 250 ML IV ONE (09:00)
[2022-12-06] MEDS: PANTOPRAZOLE 40 MG/10 ML VIAL INJ IV SCH (09:01)
[2022-12-06] MEDS: CEFEPIME 1GM/ 50ML 50 ML IV SCH (09:02)
[2022-12-06 10:00] LABS: Partial Thromboplastin Time 44.8 sec (24.6-33.4)
[2022-12-06 10:46] LABS: INR 5.72 (0.9-1.15)
[2022-12-06] MEDS: NOREPINEPHRINE 8 MG/250ML KIT 250 ML IV SCH (13:06)
[2022-12-06] MEDS ORDERED: ceFAZolin 2 GM in D5W 5% 100 ML IV SCH (14:00)
[2022-12-06 18:20] LABS: INR 2.6 (0.9-1.15)
[2022-12-06] MEDS: NAFCILLIN SOD 2GM 2 GM in SODIUM CHL 0.9% 100 ML IV SCH (22:00)
[2022-12-06] MEDS ORDERED: GENTAMICIN PER PHARMACY 0 ML IV SCH (22:15)
[2022-12-06] MEDS ORDERED: GENTAMICIN SULFATE 80 MG in D5W 5% 100 ML IV ONE (22:30)
[2022-12-06 23:14] VITALS: BP 116/58
[2022-12-06 23:44] VITALS: BP 116/58
[2022-12-07] VITALS (61 sets, daily range): BP systolic 88–115; BP diastolic 45–78
[2022-12-07] MEDS: NAFCILLIN SOD 2GM 2 GM in SODIUM CHL 0.9% 100 ML IV SCH ×4 (02:18→13:31)
[2022-12-07 05:11] LABS: INR 1.89 (0.9-1.15); Partial Thromboplastin Time 32.6 sec (24.6-33.4)
[2022-12-07 05:28] LABS: Magnesium 1.8 mg/dL (1.6-2.6); Potassium 3.5 mmol/L (3.5-5.1)
[2022-12-07 05:30] LABS: BUN/Creatinine Ratio 17.8
[2022-12-07] MEDS: NOREPINEPHRINE 8 MG/250ML KIT 250 ML IV SCH (06:08)
[2022-12-07 06:45] LABS: Basophils # (auto) 0 10 ^3/uL (0-0.2); Eosinophils # (auto) 0.1 10 ^3/uL (0-0.8); Lymphocytes # (auto) 1.8 10 ^3/uL (0.4-5.4); Monocytes # (auto) 0.7 10 ^3/uL (0-1.3)
[2022-12-07 06:48] LABS: Basophils % (auto) 0.4 % (0.0-2.0); Eosinophils % (auto) 1.4 % (0.0-7.0); Hematocrit 23.7 % (41.0-53.0); Hemoglobin 7.7 g/dL (13.5-17.5); Lymphocytes % (auto) 23.6 % (10.0-50.0); Mean Corpuscular Hemoglobin 30.8 pg (28.0-32.0); Mean Corpuscular Hgb Conc. 32.5 g/dL (32.0-36.0); Mean Corpuscular Volume 94.7 fL (80.0-100.0); Monocytes % (auto) 8.7 % (0.0-12.0); Neutrophils % (auto) 65.9 % (37.0-80.0); Nucleated Red Blood Cells % 0.5 %; White Blood Cell 7.6 10^3/uL (4.4-10.8)
[2022-12-07 07:12] LABS: Red Cell Distribution Width 20.6 % (11.8-14.3)
[2022-12-07] MEDS: PANTOPRAZOLE 40 MG/10 ML VIAL INJ IV SCH (09:06)
[2022-12-07] MEDS ORDERED: GENTAMICIN SULFATE 80 MG in D5W 5% 100 ML IV ONE (11:00)
[2022-12-07] MEDS ORDERED: GENTAMICIN SULFATE 80 MG in D5W 5% 100 ML IV SCH (12:00)
== END 2022-12-07 16:05 | disposition short-term general hospital (02) | DRG 871 ==
LOC: ER 13:52 → EDBD 13:52 → TELE 12-05 13:00 → ICU WEST 12-06 23:14
PROVIDERS: ADMIT Registered Nurse; ATTEND Internal Medicine Geriatric Medicine
PROC: 05HB33Z Insertion of Infusion Device into Right Basilic Vein, Percutaneous Approach (ICD-10-PCS; principal; 2022-12-06)
PROC: B54MZZA Ultrasonography of Right Upper Extremity Veins, Guidance (ICD-10-PCS; 2022-12-06)
DX: A41.01 Sepsis due to Methicillin susceptible Staphylococcus aureus (principal); E43 Unspecified severe protein-calorie malnutrition; I21.4 Non-ST elevation (NSTEMI) myocardial infarction; D68.9 Coagulation defect, unspecified; N39.0 Urinary tract infection, site not specified; T82.7XXA Infection and inflammatory reaction due to other cardiac and vascular devices, implants and grafts, initial encounter; D63.1 Anemia in chronic kidney disease; I12.9 Hypertensive chronic kidney disease with stage 1 through stage 4 chronic kidney disease, or unspecified chronic kidney disease; I48.91 Unspecified atrial fibrillation; Z20.822 Contact with and (suspected) exposure to COVID-19; Y83.8 Other surgical procedures as the cause of abnormal reaction of the patient, or of later complication, without mention of misadventure at the time of the procedure; N18.9 Chronic kidney disease, unspecified; Z95.2 Presence of prosthetic heart valve; Z68.28 Body mass index [BMI] 28.0-28.9, adult; Z95.810 Presence of automatic (implantable) cardiac defibrillator; Z79.01 Long term (current) use of anticoagulants; Y92.89 Other specified places as the place of occurrence of the external cause
CPT/HCPCS: 36415; 71045; 80048; 80053; 80170; 80202; 81001; 83605; 83735; 83880; 84484; 85007; 85025; 85027; 85610; 85652; 85730; 87040; 87077; 87081; 87086; 87147; 87186; 87205; 87426; 93005; 93306; 96361; 96365; 96366; 96367; 96375; C9113; G0378; J0690; J0696; J3430; J3490; J7060; P9047